=== PATIENT | female | born 1990 | race Caucasian/White ===

== ENCOUNTER 2021-01-17 07:37 | Outpatient (CLI) | payer OTHER, SELFPAY ==
[2021-01-17 07:50] VITALS: BP 113/74; PULSE 88; RESP 16; TEMP 36.8; O2SAT 97
[2021-01-17 08:45] VITALS: BP 97/63; PULSE 77; RESP 17; TEMP 36.8; O2SAT 97
[2021-01-17 09:47] VITALS: BP 95/62; PULSE 72; RESP 18; TEMP 36.8
== END 2021-01-17 07:38 | disposition home or self-care (01) ==
PROVIDERS: Visit Provider Nurse Practitioner Family
DX: U07.1 COVID-19 (principal)
CPT/HCPCS: 96365

== ENCOUNTER 2021-10-06 12:12 | Emergency (ER) | payer BC, SELFPAY ==
[2021-10-06 12:20] VITALS: BP 141/83; PULSE 77; RESP 14; TEMP 36.9; O2SAT 96; BMI 35.9
--- NOTE | 2021-10-06 12:28 | ECG_ITS ---
[facility] Test Date: 2021-10-06 Pat Name: Frieda Max Department: Room: Gender: Female Trace Clerk: : 1990 Requested By: Renan Sykes Order Number: [id number] Ghosh MD: Kj Pereira M.D. Measurements Intervals [place] Rate: 78 P: 69 W[place]: 143 QRS: 0 QRSD: 77 T: 61 QT: 378 QTc: 431 Interpretive Statements SINUS RHYTHM LOW QRS VOLTAGE IN PRECORDIAL LEADS [QRS DEFLECTION < 1.0 mV IN CHEST LEADS] POSSIBLE ANTERIOR MYOCARDIAL INFARCTION , OF INDETERMINATE AGE [30 ms Q WAVE IN V3/V4, OR R < 0.2 mV IN V4] No previous ECG available for comparison Electronically Signed On 10-06-2021 22:31:37 CDT by Kj Pereira M.D. [id number]
[2021-10-06 14:45] LABS: Add Urine Microscopic? NO; Charge for UA Resulting for Rev
[2021-10-06 14:58] LABS: Bilirubin Urine Neg (Negative); Blood Urine Neg (Negative); Glucose Urine UA Norm (Normal); HCG Qualitative Urine. Negative (Negative); Ketones Urine 1+ (Negative); Leukocyte Esterase Urine Negative (Negative); Nitrate Urine Negative (Negative); Protein Urine Neg (Negative); Specific Gravity, Urine 1.015 (1.005-1.030); Urine Appearance Clear (CLEAR); Urine Color Yellow (Yellow); Urobilinogen Urine Neg (Negative); pH Urine 5 (5-7)
--- NOTE | 2021-10-06 15:44 | XRR_ITS ---
PROCEDURE INFORMATION: Exam: XR Chest Exam date and time: 10/06/2021 3:56 PM Age: 31 years old Clinical indication: Shortness of breath; Additional info: SOB TECHNIQUE: Imaging protocol: XR of the chest. Views: 1 view. COMPARISON: No relevant prior studies available. FINDINGS: Lungs: The lung bases are suboptimally assessed due to technique however the upper lungs are clear of focal consolidation. Tiny left basilar linear opacity likely atelectasis/scarring. Pleural spaces: Unremarkable. No pleural effusion. No pneumothorax. Heart/Mediastinum: Cardiac silhouette appears normal in size. No obvious vascular congestion. Bones/joints: No acute osseous findings. Other findings: Single view was submitted. XR/XR chest 1V portable [id number] IMPRESSION: No obvious acute consolidation. Suboptimal lung base assessment. Followup including lateral view may be obtained if clinically indicated.
--- NOTE | 2021-10-06 15:44 | ED_ITS ---
Documented by User: MUKESH Jaffe 10/06/21 16:21 HPI - General Adult General: Chief complaint: Nausea/Vomiting/Diarrhea Stated complaint: Spots in vision, N/V, Tightness in chest Time Seen by Provider: 10/06/21 15:13 Source: patient Mode of arrival: ambulatory Limitations: no limitations History of Present Illness: Patient is a 31-year-old female to male transgender individual who presents to the ED today complaining of chills, nausea, vomiting, and some chest discomfort. Patient tells me he awoke at roughly 2 AM this morning with body aches. He states shortly after he began feeling nauseous and had approximately 5-6 episodes of nonbloody, nonbilious emesis. He states he had some minor discomfort to his upper abdomen but it did not really bother me . He did not notice any diarrhea. He states after vomiting several times he felt a little discomfort in his chest and throat. Denies hemoptysis. He has having a cough that he has had over the past week. P atient denies any cardiac or pulmonary history. Onset (ago): hour(s) Associated symptoms: Reports chest pain, nausea and vomiting; Deny dyspnea, headache(s), malaise, rash, palpitations or syncope Treatments prior to arrival: none Review of Systems Const: Reports: chills; Denies: fever(s), body aches, fatigue or malaise Eyes: Denies: change in vision or blurry vision ENMT: Reports: throat pain; Denies: odynophagia Card: Reports: chest pain; Denies: palpitations, irregular heart rhythm, edema, swelling of feet/ankles, lightheadedness, syncope, pre-syncope, dyspnea on exertion, orthopnea, leg pain with exertion or acrocyanosis Resp: Reports: productive cough and chest congestion; Denies: dyspnea, non-productive cough, wheezing or hemoptysis GI: Reports: abdominal pain, nausea and vomiting; Denies: hematemesis, diarrhea or change in bowel habits : Denies: flank pain, dysuria, hematuria or pelvic pain Musc: Denies: neck pain, back pain, extremity pain or joint pain Skin/Breast: Denies: rash Neuro: Denies: headache(s), numbness in extremities, weakness in extremities, sensory changes or dizziness [facility] ED PFSH: Medical History Bipolar 2 disorder History of COVID-19 Hypoglycemia Psychiatric care PTSD (post-traumatic stress disorder) Surgical History No pertinent past surgical history Family History Mother Diabetes Social History Smoking and tobacco status: current every day smoker cigarettes Packs smoked per day: 1 Years cigarettes smoked: 24 and e-cigarettes E-Cigarette Details: vaporizer device E-cig/vape details: sometimes nicotine in vape sometimes not Quit status (tobacco): considering quitting Second hand smoke exposure: Yes Alcohol intake: never Adopted: No Caregiver/support person: No Lives independently: Yes Household members: significant other Housing: Manufactured/Mobile home Marital status: Single Number of children: 0 Highest education level completed: Some College, No Degree service: No Current occupational status: employed Current occupation: [employer] Current occupational exposures/hazards: No Pets and animals: Yes Pets & animals: cat(s) History of recent travel: No Sexually active: Yes Current gender identity: Trans [id number] Special connor needs: No Physical Exam Const: COMMON NORMALS: no acute distress, patient oriented x3, no limitations and alert GENERAL APPEARANCE: cooperative NUTRITIONAL APPEARANCE: obese ORIENTATION/CONSCIOUSNESS: Yes awake, Yes oriented to person, Yes oriented to place and Yes oriented to time HENMT: COMMON NORMALS: normocephalic and atraumatic HEAD & SCALP: normocephalic and atraumatic MOUTH: Normal oral and palatal mucosa present, lip normal and tongue normal THROAT: posterior oropharynx normal, tonsils normal and uvula midline Neck/C-Spine: COMMON NORMALS: full ROM and no lymphadenopathy GENERAL: Yes normal visual inspection, No anterior neck swelling and No submandibular swelling Chest: COMMONS NORMALS: normal inspection of the chest and normal palpation of entire chest wall Resp: COMMON NORMALS: normal respiratory effort and clear to auscultation bilaterally AUSCULTATION: clear to auscultation bilaterally Cardio: COMMON NORMALS: regular rate and regular rhythm RATE: regular rate RHYTHM: regular rhythm GI: COMMON NORMALS: Normal to inspection, nondistended, normoactive bowel sounds present, Soft to palpation, non-tender, No hepatosplenomegaly present and no masses PALPATION: Yes Soft to palpation and Yes No hepatosplenomegaly pre sent : COMMON NORMALS: Yes no CVA tenderness BLADDER/KIDNEY EXAM: Yes no CVA tenderness Back/Pelvis: COMMON NORMALS: no CVA tenderness, thoracic and lumbar spine n ormal to inspection and no thoracic nor lumbar tenderness Extremity: COMMON NORMALS: normal to inspection Neuro: CONCEPCION COMA SCALE: document GCS findings [place] coma scale eye opening: Spontaneous Concepcion coma scale verbal response: Orientated [place] coma scale motor response: Obey commands Concepcion coma scale total score: 15 COMMON NORMALS: patient oriented x3, moves all extremities, no focal motor deficits and no sensory deficits noted SENSORIUM/ORIENTATION: Yes alert, Yes oriented to person, Yes oriented to place and Yes oriented to time Skin: COMMON NORMALS: no rashes or lesions noted GENERAL SKIN EXAM: no rashes or lesions noted Course Vital Signs: Vital signs: Vital Signs Temperature 98.5 F 10/06/21 12:20 Pulse Rate 76 10/06/21 18:24 Respiratory Rate 16 10/06/21 18:24 Blood Pressure 139/83 10/06/21 18:24 Pulse Oximetry 95 10/06/21 18:24 [facility] - General Adult Lab Data : 10/06/21 15:46 10/06/21 15:46 Radiology Impressions Chest X-Ray 10/06/21 15:44 IMPRESSION: No obvious acute consolidation. Suboptimal lung base assessment. Followup including lateral view may be obtained if clinically indicated. Laboratory Results WBC 8.5 10^3/uL (4.0-10.0) 10/06/21 15:46 RBC 5.14 10^6/uL (4.1-5.3) 10/06/21 15:46 Hgb 17.3 g/dL (11.5-15.3) H 10/06/21 15:46 Hct 48.6 % (37.0-47.0) H 10/06/21 15:46 MCV 94.6 fl (81-99) 10/06/21 15:46 MCH 33.7 pg (28.0-34.0) 10/06/21 15:46 MCHC 35.6 g/dL (30.0-36.0) 10/06/21 15:46 RDW 11.5 % (12.1-15.1) L 10/06/21 15:46 Plt Count 241 10^3/cmm (130-400) 10/06/21 15:46 MPV 10.1 fL (7.4-10.4) 10/06/21 15:46 Neut % (Auto) 57.9 % 10/06/21 15:46 Lymph % (Auto) 33.5 % 10/06/21 15:46 Glades % (Auto) 7.4 % 10/06/21 15:46 Eos % (Auto) 0.5 % 10/06/21 15:46 Baso % (Auto) 0.2 % 10/06/21 15:46 Neut # (Auto) 4.94 10^3/uL (1.8-7.7) 10/06/21 15:46 Lymph # (Auto) 2.9 10^3/uL (0.8-4.8) 10/06/21 15:46 [place] # (Auto) 0.6 10^3/uL (0.2-0.9) 10/06/21 15:46 Eos # (Auto) 0.0 10^3/uL (0.0-0.8) 10/06/21 15:46 Baso # (Auto) 0.0 10^3/uL (0.0-0.1) 10/06/21 15:46 Nucleated RBC % (auto) 0 % 10/06/21 15:46 Nucleated RBCs # 0.0 /100WBC 10/06/21 15:46 Sodium 136 mmol/L (136-145) 10/06/21 15:46 Potassium 4.0 mmol/L (3.5-5.1) 10/06/21 15:46 Chloride 100 mmol/L (98-107) 10/06/21 15:46 Carbon Dioxide 23 mmol/L (22-29) 10/06/21 15:46 Anion Gap 17.0 (5-19) 10/06/21 15:46 BUN 9 mg/dL (6-20) 10/06/21 15:46 Creatinine 0.7 mg/dL (0.5-0.9) 10/06/21 15:46 GFR Calculation 97.0 mL/min (90-130) 10/06/21 15:46 Glucose 77 mg/dL (65-115) 10/06/21 15:46 Calculated Osmolality 279 mOsm/kg (285-295) L 10/06/21 15:46 Calcium 9.5 mg/dL (8.5-10.5) 10/06/21 15:46 Total Bilirubin 0.9 mg/dL (0.15-1.2) 10/06/21 15:46 AST 27 U/L (0-32) 10/06/21 15:46 ALT 34 U/L (0-33) H 10/06/21 15:46 Alkaline Phosphatase 100 IU/L (35-105) 10/06/21 15:46 Total Protein 8.1 g/dL (6.6-8.7) 10/06/21 15:46 Albumin 4.5 g/dL (3.5-5.2) 10/06/21 15:46 Globulin 3.6 g/dL (1.3-4.6) 10/06/21 15:46 Lipase 14 U/L (13-60) 10/06/21 15:46 HCG, Qual Negative (Negative) 10/06/21 14:30 Urine Color Yellow (Yellow) 10/06/21 14:30 Urine Appearance Clear (CLEAR) 10/06/21 14:30 Urine pH 5 (5-7) 10/06/21 14:30 Ur Specific [place] 1.015 (1.005-1.030) 10/06/21 14:30 Urine Protein Neg (Negative) 10/06/21 14:30 Urine Glucose (UA) Norm (Normal) 10/06/21 14:30 Urine Ketones 1+ (Negative) H 10/06/21 14:30 Urine Blood Neg (Negative) 10/06/21 14:30 Urine Nitrate Negative (Negative) 10/06/21 14:30 Urine Bilirubin Neg (Negative) 10/06/21 14:30 Urine Urobilinogen Neg mg/dL (Negative) 10/06/21 14:30 Ur Leukocyte Esterase Negative (Negative) 10/06/21 14:30 Discharge Plan Discharge Patient Disposition: Home Clinical Impression: Viral syndrome Condition: Stable Prescriptions: New ondansetron 4 mg tablet,disintegrating 4 mg PO Q8H PRN (Reason: nausea and vomiting) Qty: 15 0RF No Action ibuprofen [Advil Migraine] 200 mg capsule 200 mg PO DAILY PRN0RF Zyrtec 10 mg capsule 10 mg PO DAILY PRN0RF escitalopram oxalate 10 mg tablet 10 mg PO DAILY 90 Days Qty: 90 0RF lamotrigine 150 mg tablet 150 mg PO DAILY 90 Days Qty: 90 0RF Discharge Orders: Discharge ED (Routine); Ordered 10/06/21 Ordered By: Renan Sykes Discharge Diet: Regular Discharge Activity: Increase activity as tolerated Patient Instructions: Viral Syndrome (ED) Activity Restrictions/Additional Instructions: Follow-up with medical provider as directed in the next 5 to 7 days reevaluation. Make sure you drink plenty of fluids and stay hydrated. Take medications as prescribed. Return to the ER or your medical provider if condition worsens. Please read and understand discharge instructions. Thank you for choosing [facility] for your healthcare needs today. Please realize this is an emergency room and that we are providing you with a medical screening exam and this may not be complete and all inclusive of all the testing and or work up that you may need to determine your ailment or severity of your illness. It is very important that you follow up as instructed or that you return to the Emergency Department should you have concerns or if your condition changes or worsens in any way. Sign Out Sign Out Data: Patient Sign Out occurred on 10/06/21 at 17:12. Patient's care was discussed, and care was transferred from to MUKESH Membreno. Coding Level of Care Code ED Welt Sole Layer for Chg Fwd Exam Comprehensive Documented by User: MUKESH Membreno 10/06/21 20:46 HPI - General Adult General: Chief complaint: Nausea/Vomiting/Diarrhea Stated complaint: Spots in vision, N/V, Tightness in chest Time Seen by Provider: 10/06/21 15:13 [facility] ED PFSH: Medical History Bipolar 2 disorder History of COVID-19 Hypoglycemia Psychiatric care PTSD (post-traumatic stress disorder) Surgical History No pertinent past surgical history Family History Mother Diabetes Social History Smoking and tobacco status: current every day smoker cigarettes Packs smoked per day: 1 Years cigarettes smoked: 24 and e-cigarettes E-Cigarette Details: vaporizer device E-cig/vape details: sometimes nicotine in vape sometimes not Quit status (tobacco): considering quitting Second hand smoke exposure: Yes Alcohol intake: never Adopted: No Caregiver/support person: No Lives independently: Yes Household members: significant other Housing: Manufactured/Mobile home Marital status: Single Number of children: 0 Highest education level completed: Some College, No Degree service: No Current occupational status: employed Current occupation: [employer] Current occupational exposures/hazards: No Pets and animals: Yes Pets & animals: cat(s) History of recent travel: No Sexually active: Yes Current gender identity: Trans [id number] Special connor needs: No Physical Exam Neuro: CONCEPCION COMA SCALE: document GCS findings [place] coma scale total score: 15 Course Reevaluation(s): Reevaluation #1: Patient said the Zofran helped her symptoms a lot and she is no more nausea and has no complaints of any abdominal pain. Time: 17:40 Vital Signs: Vital signs: Vital Signs Temperature 98.5 F 10/06/21 12:20 Pulse Rate 76 10/06/21 18:24 Respiratory Rate 16 10/06/21 18:24 Blood Pressure 139/83 10/06/21 18:24 Pulse Oximetry 95 10/06/21 18:24 [facility] - General Adult Medical Decision Making I took over patient care from Sofya Guzman the physician security assistant at shift change. She performed the initial history physical exam and lab work-up. She was waiting on some labs and handed patient over to me at shift change. Patient is a 31-year-old female comes to the ED with nausea, vomiting and body aches. Vitals are stable. Patient was given some Zofran here in the ED and her symptoms improved greatly. She has no abdominal pain and nausea has resolved. Labs were unremarkable. Chest x-ray showed no acute findings. Patient's symptoms likely due to a viral syndrome and she was discharged home with a prescription for Zofran for any nausea. Return to ED precautions given. Follow-up with PCP in the next week for reevaluation. Patient understood and agreed with plan. Lab Data I reviewed the patient's lab results. : 10/06/21 15:46 10/06/21 15:46 Radiology Impressions Chest X-Ray 10/06/21 15:44 IMPRESSION: No obvious acute consolidation. Suboptimal lung base assessment. Followup including lateral view may be obtained if clinically indicated. Laboratory Results WBC 8.5 10^3/uL (4.0-10.0) 10/06/21 15:46 RBC 5.14 10^6/uL (4.1-5.3) 10/06/21 15:46 Hgb 17.3 g/dL (11.5-15.3) H 10/06/21 15:46 Hct 48.6 % (37.0-47.0) H 10/06/21 15:46 MCV 94.6 fl (81-99) 10/06/21 15:46 MCH 33.7 pg (28.0-34.0) 10/06/21 15:46 MCHC 35.6 g/dL (30.0-36.0) 10/06/21 15:46 RDW 11.5 % (12.1-15.1) L 10/06/21 15:46 Plt Count 241 10^3/cmm (130-400) 10/06/21 15:46 MPV 10.1 fL (7.4-10.4) 10/06/21 15:46 Neut % (Auto) 57.9 % 10/06/21 15:46 Lymph % (Auto) 33.5 % 10/06/21 15:46 [place] % (Auto) 7.4 % 10/06/21 15:46 Eos % (Auto) 0.5 % 10/06/21 15:46 Baso % (Auto) 0.2 % 10/06/21 15:46 Neut # (Auto) 4.94 10^3/uL (1.8-7.7) 10/06/21 15:46 Lymph # (Auto) 2.9 10^3/uL (0.8-4.8) 10/06/21 15:46 [place] # (Auto) 0.6 10^3/uL (0.2-0.9) 10/06/21 15:46 Eos # (Auto) 0.0 10^3/uL (0.0-0.8) 10/06/21 15:46 Baso # (Auto) 0.0 10^3/uL (0.0-0.1) 10/06/21 15:46 Nucleated RBC % (auto) 0 % 10/06/21 15:46 Nucleated RBCs # 0.0 /100WBC 10/06/21 15:46 Sodium 136 mmol/L (136-145) 10/06/21 15:46 Potassium 4.0 mmol/L (3.5-5.1) 10/06/21 15:46 Chloride 100 mmol/L (98-107) 10/06/21 15:46 Carbon Dioxide 23 mmol/L (22-29) 10/06/21 15:46 Anion Gap 17.0 (5-19) 10/06/21 15:46 BUN 9 mg/dL (6-20) 10/06/21 15:46 Creatinine 0.7 mg/dL (0.5-0.9) 10/06/21 15:46 GFR Calculation 97.0 mL/min (90-130) 10/06/21 15:46 Glucose 77 mg/dL (65-115) 10/06/21 15:46 Calculated Osmolality 279 mOsm/kg (285-295) L 10/06/21 15:46 Calcium 9.5 mg/dL (8.5-10.5) 10/06/21 15:46 Total Bilirubin 0.9 mg/dL (0.15-1.2) 10/06/21 15:46 AST 27 U/L (0-32) 10/06/21 15:46 ALT 34 U/L (0-33) H 10/06/21 15:46 Alkaline Phosphatase 100 IU/L (35-105) 10/06/21 15:46 Total Protein 8.1 g/dL (6.6-8.7) 10/06/21 15:46 Albumin 4.5 g/dL (3.5-5.2) 10/06/21 15:46 Globulin 3.6 g/dL (1.3-4.6) 10/06/21 15:46 Lipase 14 U/L (13-60) 10/06/21 15:46 HCG, Qual Negative (Negative) 10/06/21 14:30 Urine Color Yellow (Yellow) 10/06/21 14:30 Urine Appearance Clear (CLEAR) 10/06/21 14:30 Urine pH 5 (5-7) 10/06/21 14:30 Ur Specific [place] 1.015 (1.005-1.030) 10/06/21 14:30 Urine Protein Neg (Negative) 10/06/21 14:30 Urine Glucose (UA) Norm (Normal) 10/06/21 14:30 Urine Ketones 1+ (Negative) H 10/06/21 14:30 Urine Blood Neg (Negative) 10/06/21 14:30 Urine Nitrate Negative (Negative) 10/06/21 14:30 Urine Bilirubin Neg (Negative) 10/06/21 14:30 Urine Urobilinogen Neg mg/dL (Negative) 10/06/21 14:30 Ur Leukocyte Esterase Negative (Negative) 10/06/21 14:30 Discharge Plan Discharge Patient Disposition: Home Clinical Impression: Viral syndrome Condition: Stable Prescriptions: New ondansetron 4 mg tablet,disintegrating 4 mg PO Q8H PRN (Reason: nausea and vomiting) Qty: 15 0RF No Action ibuprofen [Advil Migraine] 200 mg capsule 200 mg PO DAILY PRN0RF Zyrtec 10 mg capsule 10 mg PO DAILY PRN0RF escitalopram oxalate 10 mg tablet 10 mg PO DAILY 90 Days Qty: 90 0RF lamotrigine 150 mg tablet 150 mg PO DAILY 90 Days Qty: 90 0RF Discharge Orders: Discharge ED (Routine); Ordered 10/06/21 Ordered By: Renan Sykes Discharge Diet: Regular Discharge Activity: Increase activity as tolerated Patient Instructions: Viral Syndrome (ED) Activity Restrictions/Additional Instructions: Follow-up with medical provider as directed in the next 5 to 7 days reevaluation. Make sure you drink plenty of fluids and stay hydrated. Take medications as prescribed. Return to the ER or your medical provider if co ndition worsens. Please read and understand discharge instructions. Thank you for choosing [facility] for your healthcare needs today. Please realize this is an emergency room and that we are providing you with a medical screening exam and this may not be complete and all inclusive of all the testing and or work up that you may need to determine your ailment or severity of your illness. It is very important that you follow up as instructed or that you return to the Emergency Department should you have concerns or if your condition changes or worsens in any way. Sign Out Sign Out Data: Patient Sign Out occurred on 10/06/21 at 17:12. Patient's care was discussed, and care was transferred from to MUKESH Membreno. Coding Level of Care Code ED Welt Sole Layer for Jan Fwd Exam Comprehensive
[2021-10-06 16:10] VITALS: PULSE 73; RESP 16; O2SAT 96
[2021-10-06] MEDS: ondansetron 2 mg/ML SDV 2 mL 4 MG IVP (16:26)
[2021-10-06 16:47] LABS: Basophils % 0.2 %; Eosinophils % 0.5 %; Hematocrit 48.6 % (37.0-47.0); Hemoglobin 17.3 g/dL (11.5-15.3); Lymphocytes # 2.9 10^3/uL (0.8-4.8); Lymphocytes % 33.5 %; Mean Corpuscular HGB Conc 35.6 g/dL (30.0-36.0); Mean Corpuscular Hemoglobin 33.7 pg (28.0-34.0); Mean Corpuscular Volume 94.6 fl (81-99); Mean Platelet Volume 10.1 fL (7.4-10.4); Monocytes # 0.6 10^3/uL (0.2-0.9); Monocytes % 7.4 %; Neutrophils # 4.94 10^3/uL (1.8-7.7); Neutrophils % 57.9 %; Nucleated Red Blood Cells % 0 %; Platelet Count 241 10^3/cmm (130-400); Red Blood Count 5.14 10^6/uL (4.1-5.3); Red Cell Distribution Width 11.5 % (12.1-15.1); White Blood Count 8.5 10^3/uL (4.0-10.0)
[2021-10-06 17:12] LABS: Alanine Aminotransferase 34 U/L (0-33); Albumin Level 4.5 g/dL (3.5-5.2); Alkaline Phosphatase 100 IU/L (35-105); Aspartate Amino Transferase 27 U/L (0-32); Blood Urea Nitrogen 9 mg/dL (6-20); Calcium 9.5 mg/dL (8.5-10.5); Carbon Dioxide 23 mmol/L (22-29); Chloride 100 mmol/L (98-107); Globulin 3.6 g/dL (1.3-4.6); Glucose 77 mg/dL (65-115); Lipase 14 U/L (13-60); Osmolality Calculated 279 mOsm/kg (285-295); Sodium 136 mmol/L (136-145); Total Bilirubin 0.9 mg/dL (0.15-1.2); Total Protein 8.1 g/dL (6.6-8.7)
[2021-10-06 18:19] VITALS: BP 139/83; PULSE 76; RESP 16; O2SAT 95
[2021-10-06 18:24] VITALS: BP 139/83; PULSE 76; RESP 16; O2SAT 95
== END 2021-10-06 18:25 | disposition home or self-care (01) ==
PROVIDERS: Emergency Medicine; Physician Assistant; Emergency Provider Physician Assistant
DX: B34.9 Viral infection, unspecified (principal); F17.210 Nicotine dependence, cigarettes, uncomplicated
CPT/HCPCS: 71045; 80053; 81003; 81025; 83690; 85025; 93005; 96374; 99284; J2405

== ENCOUNTER → 2021-10-23 14:57 | Outpatient (BNVA) | payer BC, SELFPAY | PROVIDERS: PCP Family Medicine; Visit Provider Family Medicine | DX: Z01.419 Encounter for gynecological examination (general) (routine) without abnormal findings (principal); Z01.89 Encounter for other specified special examinations | CPT/HCPCS: 83036; 88175 ==

== ENCOUNTER 2022-02-13 20:22 | Emergency (ER) | payer BC, SELFPAY ==
--- NOTE | 2022-02-13 20:26 | XRR_ITS ---
PROCEDURE INFORMATION: Exam: XR Right Ankle Exam date and time: 02/13/2022 8:54 PM Age: 32 years old Clinical indication: Injury or trauma; Fall; Fracture, traumatic; Closed fracture; Ankle; Right; Not specified; Additional info: Ankle pain TECHNIQUE: Imaging protocol: Radiologic exam of the Right ankle. Views: 3 or more views. COMPARISON: No relevant prior studies available. FINDINGS: Bones/joints: Oblique/spiral fracture through the distal fibular shaft with minimal dorsal angulation. Possible hairline posterior malleolar fracture. Soft tissues: Normal. XR/XR ankle RT min 3V* [id number] IMPRESSION: 1. Oblique/spiral fracture through the distal fibular shaft with minimal dorsal angulation. 2. Possible hairline posterior malleolar fracture.
[2022-02-13 20:30] VITALS: BP 157/81; PULSE 110; RESP 18; TEMP 37.2; O2SAT 98; BMI 36.8
--- NOTE | 2022-02-13 21:00 | ED_ITS ---
Documented by User: [email or web address] Membreno 02/14/22 00:38 HPI - Extremity Problem General: Chief complaint: Extremity Injury, Lower Stated complaint: right ankle pain Time Seen by Provider: 02/13/22 20:26 History of Present Illness: Patient is a 32-year-old female comes to the ED with right ankle injury. Injury occurred an hour and a half prior to arrival. Says she was walking outside and stepped over a log and rolled her right ankle. She felt a pop in her right ankle and has had pain since injury. While at rest her pain is a 4 out of 10 but if she moves her right foot or does any weightbearing pain increases to an 8 out of 10. Associated symptoms: Deny chest pain, fever(s) or rash Review of Systems Const: Denies: fever(s), chills or fatigue Eyes: Denies: change in vision or eye discomfort ENMT: Denies: throat pain, odynophagia, nasal discharge or nasal congestion Card: Denies: chest pain, palpitations, edema, swelling of feet/ankles, dyspnea on exertion or orthopnea Resp: Denies: dyspnea, productive cough or non-productive cough GI: Denies: abdominal pain, nausea, vomiting, diarrhea, constipation or hematochezia : Denies: flank pain, dysuria or hematuria Musc: Reports: extremity pain (Right ankle pain); Denies: neck pain, back pain or extremity swelling Skin/Breast: Denies: rash or new lesions Neuro: Denies: headache(s), numbness in extremities or weakness in extremities [facility] ED PFSH: Medical History Bipolar 2 disorder History of COVID-19 Hypoglycemia Psychiatric care PTSD (post-traumatic stress disorder) Surgical History No pertinent past surgical history Family History Mother Diabetes Social History Smoking and tobacco status: current every day smoker cigarettes Packs smoked per day: 1 Years cigarettes smoked: 24 and e-cigarettes E-Cigarette Details: vaporizer device E-cig/vape details: sometimes nicotine in vape sometimes not Quit status (tobacco): considering quitting Second hand smoke exposure: Yes Alcohol intake: never Adopted: No Caregiver/support person: No Lives independently: Yes Household members: significant other Housing: Manufactured/Mobile home Marital status: Single Number of children: 0 Highest education level completed: Some College, No Degree service: No Current occupational status: employed Current occupation: [employer] Current occupational exposures/hazards: No Pets and animals: Yes Pets & animals: cat(s) History of recent travel: No Sexually active: Yes Current gender identity: Trans [id number] Special connor needs: No Female Reproductive History: Date of last menstrual period: 02/06/22 Physical Exam Const: COMMON NORMALS: patient oriented x3 and alert GENERAL APPEARANCE: cooperative HENMT: COMMON NORMALS: normocephalic HEAD & SCALP: normocephalic MOUTH: Normal oral and palatal mucosa present THROAT: posterior oropharynx normal and uvula midline Neck/C-Spine: COMMON NORMALS: supple GENERAL: Yes normal visual inspection Resp: COMMON NORMALS: normal respiratory effort, No retractions, No use of accessory muscles and clear to auscultation bilaterally AUSCULTATION: clear to auscultation bilaterally Cardio: COMMON NORMALS: regular rate, regular rhythm, S1 normal heart sound present, S2 normal heart sound present, No gallops present (Cardio), No clicks present (Cardio), No murmurs present (Cardio) and Peripheral pulses 2+ throughout RATE: regular rate RHYTHM: regular rhythm HEART SOUNDS: S1 normal heart sound present and S2 normal heart sound present PERIPHERAL PU LSES: Peripheral pulses 2+ throughout GI: COMMON NORMALS: Normal to inspection, nondistended, normoactive bowel sounds present, Soft to palpation, non-tender and no masses PALPATION: Yes Soft to palpation : COMMON NORMALS: Yes no CVA tenderness BLADDER/KIDNEY EXAM: Yes no CVA tenderness Back/Pelvis: COMMON NORMALS: no CVA tenderness Extremity: RIGHT LOWER EXTREMITY: Yes foot & digits Right ankle: Yes inspection (No visible deformity noted moderate swelling), Yes palpation (Tenderness over lateral malleolus), Yes ROM (Limited range of motion due to pain) and Yes neurovascular exam (Intact) Neuro: COMMON NORMALS: patient oriented x3 SENSORIUM/ORIENTATION: Yes alert GAIT: Yes Normal gait present Skin: GENERAL SKIN EXAM: dry skin Course Vital Signs: Vital signs: Vital Signs Temperature 98.2 F 02/13/22 22:12 Pulse Rate 94 02/13/22 22:12 Respiratory Rate 18 02/13/22 22:12 Blood Pressure 149/84 02/13/22 22:12 Pulse Oximetry 98 02/13/22 22:12 Oxygen Delivery Me thod 02/13/22 20:30 MDM - Extremity (Nontraumatic) Medical Decision Making Patient is a 32-year-old female comes to the ED with right ankle injury. Vitals are stable. Patient has some swelling to lateral malleolus along with tenderness to lateral malleolus. Neurovascular intact. Limited range of motion due to pain. X-ray of right ankle shows distal fibula fracture. Placed order with case management for patient to be referred to Ortho for follow-up on ankle fracture. Patient was put in a posterior leg splint with stirrup and sent home with crutches and a prescription for hydrocodone for pain. Return ED precautions given. Patient understood and agreed with plan. Lab Data Radiology Impressions Ankle X-Ray 02/13/22 20:26 IMPRESSION: 1. Oblique/spiral fracture through the distal fibular shaft with minimal dorsal angulation. 2. Possible hairline posterior malleolar fracture. Discharge Plan Discharge Patient Disposition: Home Clinical Impression: Ankle fracture Qualifiers: Encounter type: initial encounter Fracture type: closed Laterality: right Qualified Code(s): S82.891A - Other fracture of right lower leg, initial encounter for closed fracture Condition: Stable Prescriptions: No Action ibuprofen [Advil Migraine] 200 mg capsule 200 mg PO DAILY PRN Zyrtec 10 mg capsule 10 mg PO DAILY PRN lamotrigine 150 mg tablet 150 mg PO DAILY 90 Days Qty: 90 1RF testosterone cypionate 200 mg/mL oil 100 mg SUBCUT .q14 omeprazole 40 mg capsule,delayed release(DR/EC) 40 mg PO .q AM Qty: 90 0RF escitalopram oxalate 10 mg tablet 10 mg PO DAILY 90 Days Qty: 90 0RF Discharge Orders: Discharge ED (Routine); Ordered 02/13/22 Ordered By: Renan Sykes Referrals: Marilyn Ceron DO [Primary Care Provider] - Discharge Diet: Regular Discharge Activity: Limit activity as instructed and Use walker/crutches as instructed Patient Instructions: Ankle Fracture (ED), Opioid Safety Activity Restrictions/Additional Instructions: Follow-up with medical provider as directed. Case management should be contacting you in the next several days to set up an appoint with Ortho for follow-up on ankle fracture. Use crutches for ambulation and no weightbearing on right foot until cleared by Ortho. Keep splint on and dry. Take medications as prescribed. Return to the ER or your medical provider if condition worsens. Please read and understand discharge instructions. Thank you for choosing [facility] for your healthcare needs today. Please realize this is an emergency room and that we are providing you with a medical screening exam and this may not be complete and all inclusive of all the testing and or work up that you may need to determine your ailment or severity of your illness. It is very important that you follow up as instructed or that you return to the Emergency Department should you have concerns or if your condition changes or worsens in any way. Coding Level of Care Code ED Pest Control Technician for Chg Fwd Exam Comprehensive Documented by User: Kristofer Mendoza DO 02/14/22 01:25 HPI - Extremity Problem General: Chief complaint: Extremity Injury, Lower Stated complaint: right ankle pain Time Seen by Provider: 02/13/22 20:26 [facility] ED PFS: Medical History Bipolar 2 disorder History of COVID-19 Hypoglycemia Psychiatric care PTSD (post-traumatic stress disorder) Surgical History No pertinent past surgical history Family History Mother Diabetes Social History Smoking and tobacco status: current every day smoker cigarettes Packs smoked per day: 1 Years cigarettes smoked: 24 and e-cigarettes E-Cigarette Details: vaporizer device E-cig/vape details: sometimes nicotine in vape sometimes not Quit status (tobacco): considering quitting Second hand smoke exposure: Yes Alcohol intake: never Adopted: No Caregiver/support person: No Lives independently: Yes Household members: significant other Housing: Manufactured/Mobile home Marital status: Single Number of children: 0 Highest education level completed: Some College, No Degree service: No Current occupational status: employed Current occupation: [employer] Current occupational exposures/hazards: No Pets and animals: Yes Pets & animals: cat(s) History of recent travel: No Sexually active: Yes Current gender identity: Trans Lvnxib-[id number]-Eeed Special connor needs: No Course Vital Signs: Vital signs: Vital Signs Temperature 98.2 F 02/13/22 22:12 Pulse Rate 94 02/13/22 22:12 Respiratory Rate 18 02/13/22 22:12 Blood Pressure 149/84 02/13/22 22:12 Pulse Oximetry 98 02/13/22 22:12 Oxygen Delivery Me thod 02/13/22 20:30 MDM - Extremity (Nontraumatic) Medical Decision Making Patient is a 32-year-old female comes to the ED with right ankle injury. Vitals are stable. Patient has some swelling to lateral malleolus along with tenderness to lateral malleolus. Neurovascular intact. Limited range of motion due to pain. X-ray of right ankle shows distal fibula fracture. Placed order with case management for patient to be referred to Ortho for follow-up on ankle fracture. Patient was put in a posterior leg splint with stirrup and sent home with crutches and a prescription for hydrocodone for pain. Return ED precautions given. Patient understood and agreed with plan. This patient was originally seen by Mr. Onel PA-C.? I agree with his history, evaluation, and treatment. Lab Data Radiology Impressions Ankle X-Ray 02/13/22 20:26 IMPRESSION: 1. Oblique/spiral fracture through the distal fibular shaft with minimal dorsal angulation. 2. Possible hairline posterior malleolar fracture. Discharge Plan Discharge Patient Disposition: Home Clinical Impression: Ankle fracture Qualifiers: Encounter type: initial encounter Fracture type: closed Laterality: right Quali fied Code(s): S82.891A - Other fracture of right lower leg, initial encounter for closed fracture Condition: Stable Prescriptions: No Action ibuprofen [Advil Migraine] 200 mg capsule 200 mg PO DAILY PRN Zyrtec 10 mg capsule 10 mg PO DAILY PRN lamotrigine 150 mg tablet 150 mg PO DAILY 90 Days Qty: 90 1RF testosterone cypionate 200 mg/mL oil 100 mg SUBCUT .q14 omeprazole 40 mg capsule,delayed release(DR/EC) 40 mg PO .q AM Qty: 90 0RF escitalopram oxalate 10 mg tablet 10 mg PO DAILY 90 Days Qty: 90 0RF Discharge Orders: Discharge ED (Routine); Ordered 02/13/22 Ordered By: Renan Sykes Referrals: Marilyn Ceron DO [Primary Care Provider] - Discharge Diet: Regular Discharge Activity: Limit activity as instructed and Use walker/crutches as instructed Patient Instructions: Ankle Fracture (ED), Opioid Safety Activity Restrictions/Additional Instructions: Follow-up with medical provider as directed. Case management should be contacting you in the next several days to set up an appoint with Ortho for follow-up on ankle fracture. Use crutches for ambulation and no weightbearing on right foot until cleared by Ortho. Keep splint on and dry. Take medications as prescribed. Return to the ER or your medical provider if condition worsens. Please read and understand discharge instructions. Thank you for choosing [facility] for your healthcare needs today. Please realize this is an emergency room and that we are providing you with a medical screening exam and this may not be complete and all inclusive of all the testing and or work up that you may need to determine your ailment or severity of your illness. It is very important that you follow up as instructed or that you return to the Emergency Department should you have concerns or if your condition changes or worsens in any way. Coding Level of Care Code ED Pest Control Technician for Jan Shirley Exam Comprehensive
[2022-02-13] MEDS: HYDROcodone-acetaminophen 5-325 mg Tablet 1 TAB PO (22:01)
[2022-02-13 22:12] VITALS: BP 149/84; PULSE 94; RESP 18; TEMP 36.8; O2SAT 98
--- NOTE | 2022-02-15 11:25 | DCPLANNER ---
Addendum entered by Suki Oro 02/17/22 08:40: Patient had a follow up appointment scheduled for 02.15.[address] Vance at ortho - patient did attend appointment. Original Note: [employer] had message to schedule a follow up appointment for patient with ortho. [employer] sent patients information to the front office staff at ortho. Patients information will be printed and reviewed. Clinic will call patient with appointment information.
== END 2022-02-13 22:15 | disposition home or self-care (01) ==
PROVIDERS: Emergency Provider Physician Assistant; PCP Family Medicine
DX: S82.431A Displaced oblique fracture of shaft of right fibula, initial encounter for closed fracture (principal); F17.210 Nicotine dependence, cigarettes, uncomplicated; X50.1XXA Overexertion from prolonged static or awkward postures, initial encounter
CPT/HCPCS: 29515; 73610; 99283; E0114

== ENCOUNTER 2022-02-15 15:12 | Outpatient (CLI) | payer BC, SELFPAY | END 2022-02-15 15:13 | disposition home or self-care (01) | LOC: SPT 15:13 | PROVIDERS: PCP Family Medicine; Visit Provider Podiatrist Foot & Ankle Surgery | DX: S82.891D Other fracture of right lower leg, subsequent encounter for closed fracture with routine healing (principal); X58.XXXD Exposure to other specified factors, subsequent encounter | CPT/HCPCS: 97760; L4361 ==

== ENCOUNTER 2022-02-18 05:42 | Day surgery (SDC) | payer BC, SELFPAY ==
[2022-02-17 13:13] VITALS: BMI 36.8
--- NOTE | 2022-02-18 | SCC_ITS ---
Procedure done: Open reduction internal fixation right trimalleolar fracture CPT code 34757 28 seconds of fluoroscopic guidance, for a cumulative dose of 0.67 mGy, was provided to Dr. Vance by the radiology department. C-arm images of the RIGHT ankle were saved for the patient's permanent record. [facility]
[2022-02-18 06:05] VITALS: BP 145/87; PULSE 97; RESP 18; TEMP 36.2; O2SAT 96
--- NOTE | 2022-02-18 06:13 | W.PM.OPSUD ---
Surgery/Procedure H&P Update DATE OF PROCEDURE: February 18, 2022 DATE H&P PERFORMED: 02/15/22 CHANGES TO PREVIOUS DOCUMENTATION: None PREOP DIAGNOSIS: Right trimalleolar fracture PLANNED PROCEDURE: Operation Date: 02/18/22 07:00 Proposed Procedures p Open reduction internal fixation right trimalleolar fracture 56776,S82.851A(Right) - Preet Vance DPM
[2022-02-18 06:16] LABS: OR HCG Qualitative Urine Negative (Negative)
[2022-02-18] MEDS: CELEcoxib 200 mg Capsule 400 MG PO (06:56)
[2022-02-18] MEDS: sodium chloride 0.9% 1,000 ML 30 ML IV (06:56)
[2022-02-18] MEDS: gabapentin 300 mg Capsule PO (06:56)
[2022-02-18] MEDS: ceFAZolin 2,000 MG in sodium chloride 0.9% (plus) 50 ML 100 MG IV (07:04)
--- NOTE | 2022-02-18 07:31 | ANES.PREANE2 ---
Pre-Anesthetic Assessment Height/Weight: Height 1.55 m Weight 88.451 kg Temp Pulse Resp BP Pulse Ox O2 Del Method 97.2 F L 97 18 145/87 96 02/18/22 06:05 02/18/22 06:05 02/18/22 06:05 02/18/22 06:05 02/18/22 06:05 02/18/22 06:11 Preop Diagnosis: Right trimalleolar fracture Operation Date: 02/18/22 07:00 Proposed Procedures p Open reduction internal fixation right trimalleolar fracture 24900,S82.851A(Right) - Preet Vance DPM Familial anesthetic complications: none Was Beta Mariaelena taken within 24 hours: N/A Was Clonidine taken within 24 hours: N/A Last intake: Intake Last Liquid Date 02/17/22 Last Liquid Time 19:00 Last Solid Date 02/17/22 Last Solid Time 19:00 Social Tobacco and No alcohol Exam alert, oriented x 3 and regular rate & rhythm Airway Submandibular: within normal limits Cervical ROM: within normal limits Mallampati: Class II Dentition: full Pulmonary Chronic Obstructive Pulmonary Disease GI Gastroesophageal Reflux Disease Metabolic Morbid Obesity Neuropsych Anxiety, Bipolar and Depression Anesthetic Plan ASA status: 3 Anesthesia: General and Regional (specify below) (right pop blk) Medications/Allergies Home Medications Medication Instructions Recorded Confirmed Last Taken Type cetirizine 10 mg capsule (Zyrtec) 10 mg PO DAILY PRN allergy symptoms 10/23/20 02/18/22 02/04/22 History omeprazole 40 mg capsule,delayed 40 mg PO .q AM #90 caps 01/22/22 02/18/22 02/17/22 Rx release testosterone cypionate 200 mg/mL 100 mg SUBCUT .q14 01/22/22 02/18/22 02/16/22 History intramuscular oil hydrocodone 5 mg-acetaminophen 325 1 tab PO Q6H PRN pain 7 days #28 02/15/22 02/18/22 02/16/22 Rx mg tablet tabs naproxen 500 mg tablet 500 mg PO BID PRN Pain 02/17/22 02/18/22 02/17/22 History hydrocodone 10 mg-acetaminophen 1 tab PO Q6H 7 days #28 tabs 02/18/22 Unknown Rx 325 mg tablet lamotrigine 150 mg tablet 150 mg PO DAILY 09/02/18/22 02/15/22 History (Lamictal) Allergies Allergy/AdvReac Type Severity Reaction Status Date / Time carbamazepine [From Tegretol] Allergy Severe rash Verified 02/17/22 12:52 ethinyl estradiol Allergy Severe seizures Verified 02/17/22 12:52 [From Loestrin 1.5/30 (21)] norethindrone acetate Allergy Severe seizures Verified 02/17/22 12:52 [From Loestrin 1.5/30 (21)] Current Medications Generic Name Dose Route Start Last Admin Trade Name Jef PRN Reason Stop Dose Admin Sodium Chloride 1,000 mls @ 30 mls/hr 02/18/22 06:00 02/18/22 06:56 Sodium Chloride 0.9% IV 02/19/22 05:59 30 mls/hr .Q24H CINDI Administration PFSH Anesthesia Medical History Bipolar 2 disorder History of COVID-19 Hypoglycemia Psychiatric care PTSD (post-traumatic stress disorder) Surgical History No pertinent past surgical history Family History Mother Diabetes Social History Smoking and tobacco status: current every day smoker cigarettes Packs smoked per day: 1 Years cigarettes smoked: 24 and e-cigarettes E-Cigarette Details: vaporizer device E-cig/vape details: sometimes nicotine in vape sometimes not Quit status (tobacco): considering quitting Second hand smoke exposure: Yes Alcohol intake: never Adopted: No Caregiver/support person: No Lives independently: Yes Household members: significant other Housing: Manufactured/Mobile home Marital status: Single Number of children: 0 Highest education level completed: Some College, No Degree service: No Current occupational status: employed Current occupation: [employer] Current occupational exposures/hazards: No Pets and animals: Yes Pets & animals: cat(s) History of recent travel: No Sexually active: Yes Current gender identity: Trans Abpuog-rl-Dflh Special connor needs: No Female Reproductive History Date of last menstrual period: 02/06/22 Data Anesthesia Cardiac Studies: No Data to Display
[2022-02-18 08:10] VITALS: BP 116/91; PULSE 90; RESP 16; TEMP 36.8; O2SAT 97
[2022-02-18 08:15] VITALS: BP 136/99; PULSE 96; RESP 16; O2SAT 98
[2022-02-18 08:20] VITALS: BP 110/80; BP 148/77; PULSE 94; PULSE 98; RESP 16; RESP 18; O2SAT 95; O2SAT 98
[2022-02-18 08:25] VITALS: BP 129/90; PULSE 95; RESP 18; TEMP 36.2; O2SAT 94
[2022-02-18 08:35] VITALS: BP 135/85; PULSE 97; RESP 18; TEMP 36.2; O2SAT 94
[2022-02-18] MEDS: HYDROcodone-acetaminophen 5-325 mg Tablet 1 TAB PO (08:56)
--- NOTE | 2022-02-18 09:12 | ANES.PROC ---
Anesthesia Procedures Procedure/Date: 02/18/22 Nerve Block ^: Nerve Block 1: Main Anesthesia: general anesthesia Time Out Performed: Yes Consent: requested by attending/covering physician, from patient, risks and benefits reviewed and patient agrees to proceed Nerve block location: popliteal (right) Nerve block position: supine Anesthetic Used: ropivicaine 0.5% Amount of anesthesia used (mL): 30 Nerve Stimulator Used?: No Interscalene/Femoral BLK: 4 stimuplex 21 g needle used for position and inplane approach Injection: neg aspiration of heme Patient Tolerated Procedure: well Complications: none Additional Comments: Done in PACU
[2022-02-18] MEDS: ondansetron 2 mg/ML SDV 2 mL 4 MG IVP (09:20)
--- NOTE | 2022-02-18 15:19 | ANE.PACU2 ---
Inpatient post-anesthesia follow up: Airway intact: Yes Vital signs: Temperature 97.2 F Pulse Rate 97 Respiratory Rate 18 Blood Pressure 135/85 Pulse Oximetry 94 Oxygen Delivery Me thod Room Air Oxygen Flow Rate 6 Fraction of Inspir ed Oxygen Hydration adequate: Yes Nausea and vomiting: No Pain level: 2 Mental status: Baseline
--- NOTE | 2022-02-19 06:00 | P.OP_ITS ---
Operative Report Date of procedure: February 19, 2022 Pre-op diagnosis: Preop Diagnosis Right trimalleolar fracture Post-op diagnosis: Right trimalleolar fracture equivalent Procedure done: Open reduction internal fixation right trimalleolar fracture CPT code 92301 Implants: Camp 28 one third tubular plate. 3.5 mm locking screws provided by [employer], react syndesmotic screw, 2-0 Vicryl, 3-0 Vicryl, skin rubio Specimens removed/disposition: None Pathology: None Surgeon: Preet Vance D.P.M. 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 Presented to the emergency department and was splinted, given pain medication and crutches to remain nonweightbearing.? Patient has been compliant with weightbearing status and has been elevating her right foot.? Endorses sharp pain that is consistent to the right ankle and requesting pain medication refill. X-rays shows a right trimalleolar equivalent fracture.? There is a high Travis Yancey B fracture with comminution proximally and posterior fragmentation.? There is a small posterior malleolus fracture less than 20% of the ankle mortise that is minimally displaced and medial gutter widening indicative of deltoid ligament injury, is a trimalleolar equivalent given the deltoid ligament injury.? Educated the patient on her unstable fracture and need for surgical fixation to potentially provide a better outcome.? She is agreeable wishes to proceed.? I reviewed at length with the patient, the risks, potential complications, benefits, alternatives, expectations, and typical outcomes associated with the surgery. The risks and potential complications were explained in detail, including but not limited to infection, wound dehiscence or soft tissue complications, bleeding and hematoma, chronic edema, neuritis or nerve damage producing numbness or chronic pain, CRPS, failure to relieve pain or worsening pain, thick / painful / unsightly scar, limited motion / stiffness, malposition, delayed union, malunion, or nonunion, fracture, reaction to implants, anesthetic complications, venous thromboembolism, and deformity recurrence.? I discussed the notion of no regrets with the patient as it pertains to complications and outcomes. The patient seemed to understand the nature of the proposed care and required convalescence. They asked appropriate questions, answered to their satisfaction. They are aware no guarantees can be made as to a satisfactory outcome and they understand there may be other possible unforeseen complications or outcomes not listed here that will be treated accordingly if they arise. There were no written or implied guarantees given to the patient. They gave informed consent to proceed.? Advised 81 mg aspirin to be given taken once daily morning after surgery to help potentially reduce the risk of deep vein thrombosis.? Postoperatively expecting nonweightbearing status to be a minimum of 6 weeks.? May require physical therapy pending her postoperative recovery. ORIF right trimalleolar fracture scheduled outpatient under general anesthesia 02/18/2022, operating room table, supine, mini C arm, Camp 28, 60 minutes.? Would appreciate popliteal block per anesthesia team preoperatively.? I discussed risks and benefits of popliteal block with patient in clinic at today's visit. Procedure: Under mild sedation the patient was brought to the operating room and placed on the operating table in supine position. A timeout is performed. Anesthesia was then administered by the anesthesia service. Local anesthesia was injected by myself consisting of 5 cc of 0.5% Marcaine plain to the right saphenous nerve. Right popliteal block to be administered per anesthesia service. Well-padded pneumatic tourniquet was applied to the right high calf. Right lower extremity was then scrubbed, prepped and draped utilizing normal aseptic technique. Right lower extremity was exanguinated with an Esmarch bandage and the tourniquet inflated to 250 mmHg. Attention was directed to the right lateral malleolus where bony landmarks were palpated both medial malleolus, anterior posterior ankle as well as lateral malleolus. A linear longitudinal incision was made directly over the distal fibula laterally at the right ankle. Incision was was linear fashion with a #15 blade through skin with dissection carried down through subcutaneous tissue to the layer of periosteum utilizing blunt and sharp technique. Care was taken to retract and preserve neurovascular and tendinous structures. All bleeders were ligated and cauterized as necessary. Fresh blade utilized for periosteal incision and the fracture of the right distal fibula was distracted and curettaged of its hematoma and flushed with saline solution followed by reduction of the fracture out to length and derotation of the distal fragment and temporary stabilization with [id number] fracture reduction clamps. Next utilizing standard AO technique a one third tubular plate by Gi 28 was utilized to provide rigid internal fixation to the right distal fibular fracture with 2 screws distal locking and fashion and 4 screws proximal and a react screw through 4 cortices for Ventura syndesmotic fixation. React screw was parallel to the ankle mortise and approximately 2 cm proximal. Excellent reduction of the fracture with stable internal fixation appreciated, smooth range of motion of the right ankle intraoperatively appreciated. On the AP view, mortise view hardware was noted to be appropriate and not violating the ankle joint. Ankle mortise was congruent and fractures reduced appropriately. Incision was then flushed with copious amounts of sterile skin solution and closed in a layered fashion. Periosteum reapproximated with 2-0 Vicryl, subcutaneous tissue reapproximated with 4-0 Vicryl and skin with skin rubio. Incision was dressed with Adaptic, sterile 4 x 4, Kerlix and Raymon wrap followed by application of a cam boot to the right lower extremity with ankle in neutral position. The tourniquet was deflated and a prompt hyperemic response is noted to the distal digits of the right foot. Patient tolerated the procedure and anesthesia well and was transferred to the PACU with vital signs stable and vascular status intact. Following a period of postoperative monitoring patient will be discharged home is to remain strict nonweightbearing to the right lower extremity at all times, remain immobilized with Cam boot and elevate right foot while resting. Prescription for hydrocodone sent to pharmacy of choice electronically to be taken judiciously as needed for pain. I explained to the patient and patient's family signs and symptoms of a deep vein thrombosis to include but not limited to pain in the calf, swelling of the calf, redness and fever of the calf, chest pain and difficulty breathing. Should the patient experience any of the symptoms they are to report to the emergency department immediately. I advised a 81 mg aspirin to be taken once daily beginning the morning after surgery 02/19/2022 to help potentially reduce the risk of deep vein thrombosis. Will return to podiatry clinic Tuesday next week for first dressing change.
== END 2022-02-18 09:25 | disposition home or self-care (01) ==
PROVIDERS: Anesthesiology; PCP Family Medicine; Visit Provider Podiatrist Foot & Ankle Surgery
PROC: (CPT 27822; principal; 2022-02-18 07:00)
DX: S82.851A Displaced trimalleolar fracture of right lower leg, initial encounter for closed fracture (principal); W01.0XXA Fall on same level from slipping, tripping and stumbling without subsequent striking against object, initial encounter; J44.9 Chronic obstructive pulmonary disease, unspecified; K21.9 Gastro-esophageal reflux disease without esophagitis; E66.01 Morbid (severe) obesity due to excess calories; Z68.36 Body mass index [BMI] 36.0-36.9, adult; Z86.16 Personal history of COVID-19; F17.210 Nicotine dependence, cigarettes, uncomplicated
CPT/HCPCS: 27822; 76000; 84703; C1713; J1100; J1170; J1885; J2250; J2405; J2704; J3010; J3490; J7030

== ENCOUNTER → 2022-02-26 09:26 | Outpatient (BNVA) | payer BC, SELFPAY | PROVIDERS: PCP Family Medicine; Visit Provider Podiatrist Foot & Ankle Surgery | DX: Z98.890 Other specified postprocedural states (principal) | CPT/HCPCS: 73610 ==

== ENCOUNTER → 2022-04-01 08:04 | Outpatient (BNVA) | payer BC, SELFPAY | PROVIDERS: PCP Family Medicine; Visit Provider Podiatrist Foot & Ankle Surgery | DX: S82.851A Displaced trimalleolar fracture of right lower leg, initial encounter for closed fracture (principal); Z98.890 Other specified postprocedural states; X58.XXXA Exposure to other specified factors, initial encounter | CPT/HCPCS: 73600 ==

== ENCOUNTER → 2022-04-15 14:38 | Outpatient (BNVA) | payer BC, SELFPAY | PROVIDERS: PCP Family Medicine; Visit Provider Podiatrist Foot & Ankle Surgery | DX: Z98.890 Other specified postprocedural states (principal) | CPT/HCPCS: 73610 ==

== ENCOUNTER 2022-04-15 15:11 | Outpatient (CLI) | payer BC, SELFPAY | END 2022-04-15 15:12 | disposition home or self-care (01) | LOC: SPT 15:11 | PROVIDERS: PCP Family Medicine; Visit Provider Podiatrist Foot & Ankle Surgery | DX: Z47.89 Encounter for other orthopedic aftercare (principal) | CPT/HCPCS: 97760; L1902 ==

== ENCOUNTER → 2022-05-20 13:43 | Outpatient (BNVA) | payer BC, SELFPAY | PROVIDERS: PCP Family Medicine; Visit Provider Podiatrist Foot & Ankle Surgery | DX: Z98.890 Other specified postprocedural states (principal); S82.851D Displaced trimalleolar fracture of right lower leg, subsequent encounter for closed fracture with routine healing; X58.XXXD Exposure to other specified factors, subsequent encounter | CPT/HCPCS: 73610 ==

== ENCOUNTER → 2022-06-21 13:04 | Outpatient (BNVA) | payer BC, SELFPAY | PROVIDERS: PCP Family Medicine; Visit Provider Internal Medicine | DX: F64.9 Gender identity disorder, unspecified (principal) | CPT/HCPCS: 80053; 84403; 85014; 85018 ==